=== PATIENT | male | born 1990 | race Caucasian/White ===

== ENCOUNTER 2024-12-14 14:18 | Outpatient (AMB) | payer OTHER, SELFPAY ==
[2024-12-14 14:31] VITALS: BP 149/94; PULSE 75; TEMP 36.9; O2SAT 98; BMI 28.3
--- NOTE | 2024-12-14 14:31 | PD.RESCLINIC ---
Vital Signs 12/14/24 14:31 Height 1.63 m Height Method Stated Weight 74.843 kg Weight Measurement Method Standing Scale BMI 28.3 BP 149/94 H Blood Pressure Source Automatic Cuff Blood Pressure Location Right Upper Arm Position Sitting Pulse 75 Pulse Source Monitor Temp 98.5 F Temp Source Temporal Artery Scan Pulse Oximetry (%) 98 Oxygen Delivery Method Room Air Allergies/Meds Allergies & Medications Allergies adhesive tape Allergy (Verified 12/14/24 14:32) Medication Reconciliation albuterol sulfate 90 mcg/actuation aerosol inhaler 1 inh inhalation QID PRN shortness of breath or wheezing #8.5 grams 12/14/24 [Rx] amoxicillin 875 mg-potassium clavulanate 125 mg tablet 1 tab PO BID #14 tabs 12/14/24 [Rx] pantoprazole 40 mg tablet,delayed release 40 mg PO QDAY #30 tabs 12/14/24 [Rx] MA Intake Visit Data Collection New Patient or Established: New Patient not seen in past 3 years at [facility] (considered New) Seen by Clinical Staff ONLY (RN/MA): No Reason for Visit:: SICK X2 WEEKS Pain Present Currently: Yes Pain Location: Arm Pain scale:: 7 Pain Scale Used: Loera-Borja/Numerical Cardiovascular Lab Director Required: No PCP or OBGYN visit in last 3 months: No Do You Feel Safe at Home: Yes Authorities Contacted: N/A Smoking Status Smoking Status: Current some day smoker Cessation Counseling Provided: VALENTINE was advised that quitting smoking is the single most important factor to protect the health of themselves and their family. Discussed the benefits of quitting smoking with patient. Encouraged patient to quit smoking and provided Cessation assistance materials and resources. Tobacco Use: Cigarette Years smoked: 1.5 Are you interested in quitting?: Yes Would you like additional Smoking Cessation Counseling?: Yes Immunization / Flu Flu Vaccine in the Last 12 Months: Yes Flu Vaccine Exclusion Criteria: Already Received Past Medical History Past Medical History NEUROLOGIC: Positive Neurological Disorders and Migraine; Negative Seizures CARDIAC: Positive Cardiac Disorders and Hypertension; Negative Congestive Heart Failure RESPIRATORY: Positive Asthma (child) and Pneumonia (child); Negative Chronic Obstructive Pulmonary Disease (COPD) GASTROINTESTINAL: Positive Gastrointestinal Disorders and Gastroesophageal Reflux Disease GENITOURINARY: Negative Genitourinary Disorders or Renal Disease ENDOCRINE: Negative Endocrine Disorders, Diabetes Mellitus Type 1 or Diabetes Mellitus Type 2 HEMATOLOGIC: Negative Blood Disorders PSYCHO/SOCIAL: Positive Depression and Anxiety OTHER HISTORY: Positive Chicken Pox; Negative Autoimmune Disease, Blood Transfusions, Anesthesia Reactions, MRSA or Cancer Family History FAMILY HISTORY: Positive Family Cancer and Family Surgery; Negative Family Psychiatric Problems, Family Respiratory Disorders, Family Cardiac Disorders, Family Gastrointestinal Problems or Family Anesthesia Reaction Surgical History SURGICAL: Positive Nose Surgery (septoplasty 8 yrs ago) and Tonsillectomy Social History SMOKING STATUS: Smoking status: Current some day smoker ALCOHOL: Alcohol Intake: Current HOUSING: Housing: Apartment Patient Portal Questionaires PHQ-9 PHQ-2 Over the last 2 weeks, how often have you been bothered by any of the following problems? 1. Little interest or pleasure in doing things: not at all 2. Feeling down, depressed, or hopeless: not at all Total score: 0 PHQ-9 3. Trouble falling or staying asleep, or sleeping too much: Not at all 4. Feeling tired or having little energy: Not at all 5. Poor appetite or overeating: Not at all 6. Feeling bad about yourself - or that you are a failure or have let yourself or your family down: Not at all 7. Trouble concentrating on things, such as reading the newspaper or watching television: Not at all 8. Moving or speaking so slowly that other people could have noticed? - Or the opposite - being so fidgety or restless that you have been moving around a lot more than usual: not at all 9. Thoughts that you would be better off or of hurting yourself in some way: Not at all Total score: 0 If you checked off any problems, how difficult have these problems made it for you to do your work, take care of things at home, or get along with other people?: not difficult at all Source: Developed by Drs. Viktor Banegas, Arlyn Alfredo, Warner Fernandez and colleagues, with an educational mariangel from [employer]. Depression screen completed yes Social History Living Situation History Housing: Apartment Tobacco History Smoking Status: Current some day smoker Alcohol History Alcohol Intake: Current Domestic Abuse History Do You Feel Safe at Home: Yes Review of Systems Report any current symptoms Only answer those that you have currently: Past Medical History Past Medical History Have you ever been diagnosed with any of the following: Neurological Problems Seizures: No Migraine: Yes Cardiology Problems Congestive Heart Failure: No Hypertension: Yes Respiratory Problems Chronic Obstructive Pulmonary Disease (COPD): No Asthma: Yes (child) Pneumonia: Yes (child) Stomache/Intestinal Problems Gastroesophageal Reflux Disease: Yes Genital/Urinary Problems Renal Disease: No Endocrine Problems Diabetes Mellitus Type 1: No Diabetes Mellitus Type 2: No Psychologic Problems Depression: Yes Anxiety: Yes Other Problems Autoimmune Disease: No Blood Transfusions: No Anesthesia Reactions: No MRSA: No Chicken Pox: Yes Cancer: No History of Present Illness HPI Narrative Patient is a 34y/o M with PMH HTN, depression, anxiety, GERD, and occasional difficulty urinatng for which he has seen urology. Patient states he was at work when a coworker noticed he was coughing, and advised patient to present to [facility], as patient's PCP did not have an appointment until 12/26/2024. Patient states for 2 weeks he has felt SOB, congested, had a productive cough of green/yellow sputum, occasional sweats/chills, headache, decreasedp.o. intake, nausea and vomiting. Patient also endorses epigastric abdominal pain. He also has been drinking heavily (~70+ oz peach schnapps/week) since his father 1 year ago. He was advised to reduce his alcohol intake, and patient counseled on adverse effects of alcohol, including cirrhosis, GI bleed, and possibly even . Additional complaints include intermittent shoulder pain, with numbness/tingling into left 5th digit. Patient was referred to neurology last year, and was to undergo nerve conduction study, however has not followed up since his father passed. He was advised to follow up with neuro. As patient's father was diagnosed with colon cancer at age 45, advised patient he will need a colonoscopy next year. Review of Systems Review of Systems Systems Reviewed: All systems reviewed, normal except as documented Objective/Exam Narrative Physical exam: Gen: AAOx3, sounds congested HEENT: NCAT, PERRLA, EOMI, MMM, +R cervical LAD CVS: normal S1, S2. RRR. No MRG Resp: Significantly diminished breath sounds, occasional rhonchi worse on right Abd: soft, TTP in epigastrium, non-distended. BS+ in all 4 quadrants MSK: Good ROM in BUE & BLE. No edema or rash. Neuro: CN II-XII grossly intact. Strength 5/5 in BUE & BLE. Decreased sensation at medial aspect left 5th digit Psych: sad, anxious Assessment & Plan Diagnosis / Problem List (1) Community acquired bacterial pneumonia: Status: Acute Assessment & Plan: 2 weeks of respiratory symptoms, including productive cough of green/yellow sputum; sweats; chills Patient does go kayaking, therefore will rule out cocci Plan: CBC, CMP, Cocci, CXR ordered Augmentin x 7days Albuterol prn for SOB (2) Epigastric abdominal pain: Status: Acute Assessment & Plan: Burning sensation and TTP on exam Significant alcohol consumption history Plan: Follow up CMP, lipase, H. pylori stool antigen Ordered protonix (3) Family history of colon cancer in father: Status: Acute Assessment & Plan: Patient's father diagnosed with colon cancer at 45 Plan: Patient will need colonoscopy in 1 year at the age of 35 Plan F/U labs (CBC, CMP, lipase, H. pylori, Cocci), CXR Complete augmentin course as prescribed Orders: Orders XR chest 2V Today J15.9 - Unspecified bacterial pneumonia CBC Auto Diff Post-Transfusion Today J15.9 - Unspecified bacterial pneumonia Comprehensive Metabolic Panel Today J15.9 - Unspecified bacterial pneumonia Lipase Today R10.13 - Epigastric pain Helicobacter pylori Ag, Stool* Today R10.13 - Epigastric pain Cocci Serology, Unk History Today R05.9 - Cough, unspecified, R06.02 - Shortness of breath Office Procedures [facility] Level of Care Nursing/Assessment Patient Status: Initial/New Patient Nursing Assessment/Reassessment: Medication Reconciliation, Update PMH in EMR and Vital Signs Coordination of Care: Complex Care and Chronic Disease 1-5, Consent,records obtained, informed consent, Education Simp Pt/Fam and Staff clarify orders New Patient Charge New Patient Point Assignment: [id number] New Patient Point Charge: EQUIP TECH Level 3 ([id number])
== END 2024-12-14 15:14 | disposition home or self-care (01) ==
LOC: HODAHC 14:18
PROVIDERS: PCP Internal Medicine; Referring Provider Internal Medicine; Supervising Provider Internal Medicine; Visit Provider Student in an Organized Health Care Education/Training Program
DX: J15.9 Unspecified bacterial pneumonia (principal); R10.13 Epigastric pain; F10.10 Alcohol abuse, uncomplicated; Z71.41 Alcohol abuse counseling and surveillance of alcoholic; Z80.0 Family history of malignant neoplasm of digestive organs; I10 Essential (primary) hypertension
CPT/HCPCS: 99203; G0463

== ENCOUNTER → 2024-12-14 | Outpatient (CLI) | payer OTHER, SELFPAY ==
--- NOTE | 2024-12-14 15:36 | XR_ITS ---
Examination: PA lateral chest 2 views TECHNIQUE: Upright PA and lateral chest 2 views Date and time: December 14, 2024 1542 hours Comparison October 28, 2018 INDICATIONS: Congestion difficulty breathing 2 weeks. FINDINGS: Normal heart size. Lungs are clear. The osseous structures are intact IMPRESSION: No active disease
[2024-12-14 16:29] LABS: Basophils % (Auto) 1 % (0-2.5); Eosinophils % (Auto) 1 % (0-10); Hematocrit 40.5 % (41.0-53.0); Hemoglobin 14.2 g/dL (13.5-16.0); Immature Granulocytes % (Auto) 0 % (0-0); Immature Granulocytes Auto 0.02 Thou/mm3 (0.00-0.00); Lymphocytes # (Auto) 1.6 Thou/mm3 (1.0-4.8); Lymphocytes % (Auto) 26 % (10-50); Mean Corpuscular HGB Conc 35.1 g/dl (31.0-37.0); Mean Corpuscular Hemoglobin 29.3 pg (25.0-35.0); Mean Corpuscular Volume 84 fL (80-100); Monocytes # (Auto) 0.6 Thou/mm3 (0.0-0.8); Monocytes % (Auto) 11 % (0-12); Neutrophils # (Auto) 3.7 Thou/mm3 (1.8-7.7); Neutrophils % (Auto) 62 % (37-80); Nucleated Red Blood Cell % 0 /100 WBC (0); Platelet Count 270 Thou/mm3 (140-440); RDW Standard Deviation 35.6 fL (35.1-43.9); Red Blood Count 4.85 Miln/mm3 (4.50-5.90); White Blood Count 6.1 Thou/mm3 (3.8-10.6)
[2024-12-14 16:53] LABS: Alanine Aminotransferase 14 U/L (10-49); Albumin, Serum 4.8 gm/dL (3.5-5.0); Albumin/Globulin Ratio 2.1 (1.2-2.2); Alkaline Phosphatase 61 U/L (46-116); Anion Gap 11 (7-16); Aspartate Amino Transferase 21 U/L (0-34); BUN/Creatinine Ratio 20 Ratio (12-20); Bilirubin,Total 0.5 mg/dL (0.3-1.2); Blood Urea Nitrogen 20 mg/dL (9-23); Calcium 9.1 mg/dL (8.3-10.6); Calcium (Corrected) 9.1 mg/dL (8.5-10.1); Carbon Dioxide 24.8 mMol/L (20.0-31.0); Chloride 106 mMol/L (98-107); Globulin 2.3 gm/dL (2.3-3.5); Glucose 93 mg/dL (74-106); Lipase 128 U/L (12-53); Osmolality,Calculated 285 (275-295); Potassium 4.4 mMol/L (3.4-5.1); Sodium 142 mMol/L (136-145); Total Protein 7.1 gm/dL (5.7-8.2); eGFR > 60 See Note
[2024-12-15 13:13] LABS: Cocci Serology, IgM Negative (Negative)
[2024-12-16 11:41] LABS: Cocci Serology, IgG Negative (Negative)
== END | disposition home or self-care (01) ==
LOC: CDIM 15:32 → COPL 15:48
PROVIDERS: PCP Internal Medicine; Referring Provider Student in an Organized Health Care Education/Training Program; Visit Provider Radiology Diagnostic Radiology
DX: J15.9 Unspecified bacterial pneumonia (principal); R10.13 Epigastric pain
CPT/HCPCS: 36415; 71046; 80053; 83690; 85025; 86331; 86635

== ENCOUNTER 2024-12-21 13:52 | Outpatient (AMB) | payer OTHER, SELFPAY ==
--- NOTE | 2024-12-21 14:11 | ACNOTE_ITS ---
Vital Signs 12/21/24 14:12 Height 1.63 m Height Method Stated Weight 75.807 kg Weight Measurement Method Standing Scale BMI 28.5 BP 135/81 H Blood Pressure Source Automatic Cuff Blood Pressure Location Right Upper Arm Position Sitting Respiration 17 Pulse 59 L Pulse Source Monitor Temp 98.4 F Temp Source Temporal Artery Scan Pulse Oximetry (%) 97 Oxygen Delivery Method Room Air Allergies/Meds Allergies & Medications Allergies adhesive tape Allergy (Verified 12/21/24 14:16) Medication Reconciliation albuterol sulfate 90 mcg/actuation aerosol inhaler 1 inh inhalation QID PRN shortness of breath or wheezing #8.5 grams 12/14/24 [Rx Confirmed 12/21/24] amoxicillin 875 mg-potassium clavulanate 125 mg tablet 1 tab PO BID #14 tabs 12/14/24 [Rx Confirmed 12/21/24] pantoprazole 40 mg tablet,delayed release 40 mg PO QDAY #30 tabs 12/14/24 [Rx Confirmed 12/21/24] cyclobenzaprine 5 mg tablet 5 mg PO QHS PRN muscle spasm #30 tabs 12/21/24 [Rx] lisinopril 5 mg tablet 5 mg PO QDAY #30 tabs 12/21/24 [Rx] sucralfate 1 gram tablet (Carafate) 1 g PO TID #30 tabs 12/21/24 [Rx] MA Intake Visit Data Collection New Patient or Established: Established Patient (seen at [facility] within 3 years) Seen by Clinical Staff ONLY (RN/MA): No Reason for Visit:: FOLLOW UP Pain Present Currently: No Pain scale:: 0 Pain Scale Used: Leora-Borja/Numerical Squirrel Man Required: No PCP or OBGYN visit in last 3 months: Yes Date of Last PCP or OBGYN visit: 12/14/24 Do You Feel Safe at Home: Yes Authorities Contacted: N/A Smoking Status Smoking Status: Current some day smoker Cessation Counseling Provided: VALENTINE was advised that quitting smoking is the single most important factor to protect the health of themselves and their family. Discussed the benefits of quitting smoking with patient. Encouraged patient to quit smoking and provided Cessation assistance materials and resources. Tobacco Use: Cigarette Years smoked: 10 Are you interested in quitting?: Yes Would you like additional Smoking Cessation Counseling?: No Immunization / Flu Flu Vaccine in the Last 12 Months: Yes Flu Vaccine Exclusion Criteria: No Exclusion Criteria and Already Received Past Medical History Past Medical History NEUROLOGIC: Positive Neurological Disorders and Migraine; Negative Seizures CARDIAC: Positive Cardiac Disorders and Hypertension; Negative Congestive Heart Failure RESPIRATORY: Positive Asthma (child) and Pneumonia (child); Negative Chronic Obstructive Pulmonary Disease (COPD) GASTROINTESTINAL: Positive Gastrointestinal Disorders and Gastroesophageal Reflux Disease GENITOURINARY: Negative Genitourinary Disorders or Renal Disease ENDOCRINE: Negative Endocrine Disorders, Diabetes Mellitus Type 1 or Diabetes Mellitus Type 2 HEMATOLOGIC: Negative Blood Disorders PSYCHO/SOCIAL: Positive Depression and Anxiety OTHER HISTORY: Positive Chicken Pox; Negative Autoimmune Disease, Blood Transfusions, Anesthesia Reactions, MRSA or Cancer Family History FAMILY HISTORY: Positive Family Cancer and Family Surgery; Negative Family Psychiatric Problems, Family Respiratory Disorders, Family Cardiac Disorders, Family Gastrointestinal Problems or Family Anesthesia Reaction Surgical History SURGICAL: Positive Nose Surgery (septoplasty 8 yrs ago) and Tonsillectomy Social History SMOKING STATUS: Smoking status: Current some day smoker ALCOHOL: Alcohol Intake: Current HOUSING: Housing: Apartment Patient Portal Questionaires PHQ-9 PHQ-2 Over the last 2 weeks, how often have you been bothered by any of the following problems? 1. Little interest or pleasure in doing things: not at all 2. Feeling down, depressed, or hopeless: not at all Total score: 0 PHQ-9 3. Trouble falling or staying asleep, or sleeping too much: Not at all 4. Feeling tired or having little energy: Not at all 5. Poor appetite or overeating: Not at all 6. Feeling bad about yourself - or that you are a failure or have let yourself or your family down: Not at all 7. Trouble concentrating on things, such as reading the newspaper or watching television: Not at all 8. Moving or speaking so slowly that other people could have noticed? - Or the opposite - being so fidgety or restless that you have been moving around a lot more than usual: not at all 9. Thoughts that you would be better off or of hurting yourself in some way: Not at all Total score: 0 If you checked off any problems, how difficult have these problems made it for you to do your work, take care of things at home, or get along with other people?: not difficult at all Source: Developed by Drs. Viktor Banegas, Arlyn B.W. Warner Alfredo and colleagues, with an educational mariangel from [employer]. Depression screen completed yes Social History Living Situation History Housing: Apartment Tobacco History Smoking Status: Current some day smoker Alcohol History Alcohol Intake: Current Domestic Abuse History Do You Feel Safe at Home: Yes Review of Systems Report any current symptoms Only answer those that you have currently: Past Medical History Past Medical History Have you ever been diagnosed with any of the following: Neurological Problems Seizures: No Migraine: Yes Cardiology Problems Congestive Heart Failure: No Hypertension: Yes Respiratory Problems Chronic Obstructive Pulmonary Disease (COPD): No Asthma: Yes (child) Pneumonia: Yes (child) Stomache/Intestinal Problems Gastroesophageal Reflux Disease: Yes Genital/Urinary Problems Renal Disease: No Endocrine Problems Diabetes Mellitus Type 1: No Diabetes Mellitus Type 2: No Psychologic Problems Depression: Yes Anxiety: Yes Other Problems Autoimmune Disease: No Blood Transfusions: No Anesthesia Reactions: No MRSA: No Chicken Pox: Yes Cancer: No History of Present Illness HPI Narrative Patient is a 34y/o M with PMH HTN, depression, anxiety, GERD, and occasional difficulty urinatng for which he has seen urology. Patient states he was at work when a coworker noticed he was coughing, and advised patient to present to [facility], as patient's PCP did not have an appointment until 12/26/2024. Patient states for 2 weeks he has felt SOB, congested, had a productive cough of green/yellow sputum, occasional sweats/chills, headache, decreasedp.o. intake, nausea and vomiting. Patient also endorses epigastric abdominal pain. He also has been drinking heavily (~70+ oz peach schnapps/week) since his father 1 year ago. He was advised to reduce his alcohol intake, and patient counseled on adverse effects of alcohol, including cirrhosis, GI bleed, and possibly even . Additional complaints include intermittent shoulder pain, with numbness/tingling into left 5th digit. Patient was referred to neurology last year, and was to undergo nerve conduction study, however has not followed up since his father passed. He was advised to follow up with neuro. As patient's father was diagnosed with colon cancer at age 45, advised patient he will need a colonoscopy next year. 12/21/2024: Patient returns for follow up. His respiratory symptoms have improved, and patient only complains of mild productive cough with light sputum. He completed augmentin course. Labs, Xray were reviewed, WNL; cocci negative. Epigastric abdominal pain remains, is better with protonix and mainly happens after he eats. Will add carafate. Lipase was mildly elevated 128, and patient states he quit drinking 3 days ago. CIWA-Ar score was 18 with patient having significant tremors with hands outstretched; sweating; headache; severe tactile disturbances; nausea and anxiety. Patient was advised to go to the ER for monitoring of symptoms. SBP remains elevated, patient requests to start antihypertensive. Will have patient follow up with renal panel in 2 weeks. Patient is also having severe back spasms related to arthritis in his neck. Has previously used tramadol, will try flexeril. Review of Systems Review of Systems Systems Reviewed: All systems reviewed, normal except as documented Objective/Exam Narrative Physical exam: Gen: AAOx3, sounds congested HEENT: NCAT, PERRLA, EOMI, MMM, LAD improved CVS: normal S1, S2. RRR. No MRG Resp: CTA B/L Abd: soft, TTP in epigastrium, non-distended. BS+ in all 4 quadrants MSK: Good ROM in BUE & BLE. No edema or rash. TTP in lower back Neuro: CN II-XII grossly intact. Strength 5/5 in BUE & BLE. Decreased sensation at medial aspect left 5th digit Psych: sad, anxious Assessment & Plan Diagnosis / Problem List (1) Alcohol withdrawal: Status: Acute Qualifiers: Complication of substance-induced condition: uncomplicated Qualified Code(s): F10.930 - Alcohol use, unspecified with withdrawal, uncomplicated Assessment & Plan: Patient previously would drink 60-70oz peach schnapps every week Quit 3 days ago (12/18/24) CIWA-Ar score in clinic 18 Plan: Advised patient to go to the ER for monitoring of withdrawal symptoms Advised patient to start AA (2) Hypertension: Status: Acute Qualifiers: Hypertension type: unspecified Qualified Code(s): I10 - Essential (primary) hypertension Assessment & Plan: SBP 149 last week; SBP 135 today Plan: Start lisinopril 5mg Follow up renal panel in 2 weeks (3) Cough: Status: Acute Qualifiers: Cough type: acute Qualified Code(s): R05.1 - Acute cough Assessment & Plan: Cough URI symptoms are improving Labs/Xrays negative Plan: Continue to monitor (4) Epigastric abdominal pain: Status: Acute Assessment & Plan: Pain remains Better with protonix, worse with eating Plan: Continue protonix Added carafate TID (5) Acid reflux: Status: Acute Qualifiers: Esophagitis presence: without esophagitis Qualified Code(s): K21.9 - Gastro-esophageal reflux disease without esophagitis Assessment & Plan: see above Plan: see above (6) Muscle spasm of back: Status: Chronic Assessment & Plan: Chronic back spasms related to arthritis in neck Patient is seeing neuro outpatient Plan: Flexeril 5mg qHS prn Plan Present to ED for alcohol withdrawal Start lisinopril for HTN; f/u renal panel in 2 weeks Added carafate for acid reflux/epigastric abdominal pain Orders: Orders Renal Function Panel 12/21/24 Additional Assessment Attending note: I, Ady Peter MD, attest that I was physically present for the dukes portions of the service and evaluated the patient with the resident and I reviewed and discussed the case with the resident and agree with the resident's findings and plans of care as documented above. Patient sent to ER due to concerns of active withdrawal. Ady Peter MD Physician Billing Established Patient Established Patient: E/M Level 3-CPT 87291 Office Procedures [facility] Level of Care Nursing/Assessment Patient Status: Established Patient Nursing Assessment/Reassessment: Medication Reconciliation, Update PMH in EMR and Vital Signs Coordination of Care: Complex Care and Chronic Disease 1-5, Consent,records obtained, informed consent, Education Simp Pt/Fam, Lab and Imaging orders and Staff clarify orders Established Patient Charge Established Patient Point Assignment: 100 Established Patient Point Charge: EP Level 3 (80-115)
[2024-12-21 14:12] VITALS: BP 135/81; PULSE 59; RESP 17; TEMP 36.9; O2SAT 97; BMI 28.5
== END 2024-12-21 14:38 | disposition home or self-care (01) ==
LOC: HODAHC 13:52
PROVIDERS: PCP Internal Medicine; Referring Provider Internal Medicine; Supervising Provider Internal Medicine; Visit Provider Student in an Organized Health Care Education/Training Program
DX: R05.1 Acute cough (principal); K21.9 Gastro-esophageal reflux disease without esophagitis; M62.830 Muscle spasm of back; I10 Essential (primary) hypertension; F10.939 Alcohol use, unspecified with withdrawal, unspecified
CPT/HCPCS: 99213; G0463